=== PATIENT | male | born 1930 | race Caucasian/White ===

== ENCOUNTER 2017-11-29 13:30 | Emergency (ER) | payer MEDICARE, OTHER ==
--- NOTE | 2017-11-29 15:52 | US ---
INDICATION: Right lower leg pain, question DVT. DUPLEX ULTRASOUND, RIGHT LOWER EXTREMITY VEINS: Utilizing 2-D real time, duplex Doppler spectral analysis, and color flow imaging, examination of the right lower extremity veins was obtained, 11/29/2017, and compared with 2008, again revealing no evidence of deep venous thrombosis, with normal compression and color flow present in the deep venous structures and greater saphenous vein to the mid-thigh area. However, at this time there is suggested incompetence of valves at the proximal third of the deep femoral vein. The study was otherwise unremarkable. IMPRESSION: 1. No evidence of deep venous thrombosis. 2. Incompetence of valves suggested proximal third of the femoral deep vein. Report was called to Dr. Figueroa at 1539 hours, 11/29/2017. [facility]
--- NOTE | 2017-12-01 16:02 | ER ---
DATE SEEN: 11/29/2017 TIME SEEN: The patient was seen at 1400 hours. HISTORY: This pleasant 87-year-old gentleman comes in with history of pain in his left leg. He has had a DVT in the past. He has not done any traveling, not sat in one position, and he has not been flying in an airplane. He takes a baby aspirin on a daily basis. 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 He smokes 15-pack years. He has prostate cancer, takes Lupron. He was diagnosed with prostate cancer after he had this pain in his left leg and then further workup demonstrated a large prostate. Consequently, he had prostatic cancer intervention, which required hormonal therapy, not surgical. No history of kidney stones. He denies swelling of the left extremity. Most of the pain is in the left gastroc area. No edema. No history of varicose veins or DVT. REVIEW OF SYSTEMS: Prostate cancer, hypertension, leg pain, chronic obstructive lung disease, [id number] smoking, GERD, chronic muscle aches, and migraines. PHYSICAL EXAMINATION: VITAL SIGNS: Blood pressure 127/70, heart rate regular in the 80s, respirations 20, and oxygen saturation 96%. 80.286 kg. BMI 29.5 kg/m2. CONSTITUTIONAL: The patient is alert and pleasant and talkative fellow with a ward. He is accompanied by his . She is equally as pleasant. NECK: No bruits. No thyromegaly. No masses in neck. HEENT: Pharynx without abnormality. PERRLA intact. Hearing is decreased. If I talk louder, he is able to manage quite well. LUNGS: Clear without rales, rhonchi, or wheezes. HEART: S1, S2. No irregular rate and rhythm. ABDOMEN: Soft. No guarding. No abdominal discomfort. MUSCULOSKELETAL: Palpation of suprapubic area, pelvic bones, without pain. Range of motion of hip and legs, decreased range of motion, but still within normal for his age. Left posterior lower leg (gastroc region) area of focal tenderness. No edema in lower extremities noted. No compromised pulses. No circulation abnormalities in lower extremities. DVT was ruled out with a normal ultrasound. He has some proximal venous valvular insufficiency, which may augment his discomfort he experiences in his calf - this is bilateral lower extremities. ASSESSMENT: 1. Venous insufficiency, with incompetent valves proximal veins in the left lower extremity. 2. Pain in his left mid-calf, etiology indeterminate. No evidence for deep vein thrombosis. 3. Prostate cancer, treated with Lupron, stable. Lupron puts him at an increased risk for deep vein thrombosis or increased coagulability. 4. Hypertension, treated. 5. GERD. 6. Arthritis. 7. Allergic rhinitis. 8. Migraines. PLAN: reassure patient no DVT and follow u with 1 week /[id number] KAMLAA/BYRON GARZON
== END 2017-11-29 16:00 | disposition home or self-care (01) ==
LOC: FB.ED 13:30
DX: I87.2 Venous insufficiency (chronic) (peripheral) (principal); I83.92 Asymptomatic varicose veins of left lower extremity; I10 Essential (primary) hypertension; C61 Malignant neoplasm of prostate; M19.90 Unspecified osteoarthritis, unspecified site; G43.909 Migraine, unspecified, not intractable, without status migrainosus; J30.9 Allergic rhinitis, unspecified; K21.9 Gastro-esophageal reflux disease without esophagitis; J44.9 Chronic obstructive pulmonary disease, unspecified; F17.210 Nicotine dependence, cigarettes, uncomplicated; Z86.718 Personal history of other venous thrombosis and embolism; Z79.01 Long term (current) use of anticoagulants
CPT/HCPCS: 93971-RT; 99284

== ENCOUNTER 2019-05-09 16:46 | Emergency (ER) | payer MEDICARE, OTHER ==
[2019-05-09] MEDS ORDERED: Sodium Chloride 0.9% 10 ML Syringe FLUSH PRN (17:39)
--- NOTE | 2019-05-09 17:39 | EDM.PDOC ---
ED HPI GENERAL MEDICAL PROBLEM - General Chief Complaint: Gastrointestinal Problem Stated Complaint: BLOOD STOOL Time Seen by Provider: 05/09/19 17:20 Source of Information: Reports: Patient History Limitations: Reports: No Limitations - History of Present Illness INITIAL COMMENTS - FREE TEXT/NARRATIVE: 88-year-old male with recent admission to [facility] in [place] with acute GI bleed which was associated with a 9 day hospital stay and 8 units of pack red blood cells being transfused over that period of time. The patient had EGD and colonoscopy performed. The EGD showed gastric and duodenal ulcers and this was initially felt to be the cause of the patient's gastrointestinal bleeding. While he was in the hospital he had drops in his hemoglobin and required recurrent transfusions. He had a colonoscopy following this which showed only diverticula but no source of bleeding. He also had capsule endoscopy performed and the camera has not been passed yet. He eventually stabilized with a hemoglobin of 8.9 at the time of discharge, yesterday. He seemed normal through the day, yesterday, and then today he noted that he begin to have aching all over (he reports he has pain in every part of his body) with cramping in his legs and his thighs and he reports that he had these same symptoms when he had low blood count before. He also noticed that he was very weak and he couldn't get out of bed day without assistance and felt dizzy when he was up and about. Just prior to coming to the emergency department he had 2 stools with bright red blood and clots. He has had no further stools since that time. He has had some nausea but no vomiting. He has no abdominal discomfort or cramping. The pain that he is having is rated by him as a 6-7/10. It is all over his body and he reports it is sore and cramping. He has had no fevers or chills. He has had no trouble breathing. He has had palpitations or feeling of fast heart rate. There are no other associated signs or symptoms. There are no other modifying factors. Onset: Today Duration: Getting Worse Location: Reports: Generalized Quality: Reports: Ache, Other (Cramping) Severity: Moderate Improves with: Reports: Rest (Somewhat) Worsens with: Reports: Other (Standing), Movement Context: Reports: Other (As above) Associated Symptoms: Reports: Nausea/Vomiting, Weakness Treatments INSTRUCTIONAL SUPPORT SPECIALIST: Reports: Other (see below) (Nothing) generalized Pain Score (Numeric/FACES): 6 - Related Data Allergies Allergy/AdvReac Type Severity Reaction Status Date / Time Penicillins Allergy Hives Verified 05/09/19 17:30 Home Meds: Home Meds Lisinopril 20 mg PO DAILY 11/29/17 [History] Enzalutamide [Xtandi] 40 mg PO DAILY 08/25/18 [History] amLODIPine Besylate [Amlodipine Besylate] 5 mg PO DAILY 08/25/18 [History] Past Medical History HEENT History: Reports: Impaired Vision Cardiovascular History: Reports: Hypertension Gastrointestinal History: Reports: GI Bleed Genitourinary History: Reports: Prostate Disorder Oncologic (Cancer) History: Reports: Bone, Prostate - Past Surgical History GI Surgical History: Reports: Colonoscopy, EGD Social & Family History - Family History Family Medical History: Noncontributory - Tobacco Use Smoking Status *Q: Former Smoker (Quit 30 years ago) - Caffeine Use Caffeine Use: Reports: Coffee - Alcohol Use Alcohol Use History: Yes Alcohol Use Frequency: Daily (1-2 drinks daily.) - Living Situation & Occupation Social History Comment: He is here with his daughter. ED ROS GENERAL - Review of Systems Review Of Systems: See Below Constitutional: Reports: Malaise, Weakness HEENT: Reports: Other (Drymouthed) Respiratory: Reports: No Symptoms Cardiovascular: Reports: No Symptoms GI/Abdominal: Reports: Bloody Stool, Hematochezia : Reports: No Symptoms Musculoskeletal: Reports: Other (Aching all over his body. Cramps in both legs) Skin: Reports: No Symptoms Neurological: Reports: Dizziness Hematologic/Lymphatic: Reports: No Symptoms Immunologic: Reports: No Symptoms ED EXAM, GENERAL - Physical Exam Exam: See Below Exam Limited By: No Limitations General Appearance: Alert, WD/WN, Moderate Distress Eye Exam: Bilateral Eye: EOMI, Normal Inspection Ears: Normal External Exam Ear Exam: Bilateral Ear: Auricle Normal Nose: Normal Inspection, Normal Mucosa, No Blood Throat/Mouth: Normal Voice, No Airway Compromise, Other (Dry mucous membranes) Head: Atraumatic, Normocephalic Neck: Normal Inspection, Supple, Non-Tender, Full Range of Motion Respiratory/Chest: No Respiratory Distress, Lungs Clear, Normal Breath Sounds, No Accessory Muscle Use, Chest Non-Tender Cardiovascular: Normal Peripheral Pulses, Regular Rate, Rhythm, No JVD, Systolic Murmur Peripheral Pulses: 2+: Radial (L), Radial (R), Dorsalis Pedis (L), Dorsalis Pedis (R) GI/Abdominal: Normal Bowel Sounds, Soft, Non-Tender, No Mass Rectal (Males) Exam: Other (Stool brought in by family shows definite bright red blood with clots.) Back Exam: Normal Inspection Extremities: Normal Range of Motion, Normal Capillary Refill Neurological: Alert, Oriented, CN II-XII Intact, Normal Cognition, No Motor/ Sensory Deficits Skin Exam: Warm, Dry, Intact, Pallor Course - Vital Signs Last Recorded V/S: Last Vital Signs Temp 36.4 C 05/09/19 19:00 Pulse 82 05/09/19 19:00 Resp 18 05/09/19 19:00 BP 122/70 05/09/19 19:00 Pulse Ox 97 05/09/19 19:00 Orthostatic Blood Pressure [ 134/76 Sitting] Orthostatic Blood Pressure [ 132/70 Supine] - Orders/Labs/Meds Orders: Active Orders 24 hr Category Date Time Status Peripheral IV Insertion Adult [OM.PC] Routine Oth 05/09/19 17:39 Ordered Labs: Laboratory Tests 05/09/19 05/09/19 05/09/19 Range/Units 18:10 18:10 18:10 WBC 5.3 (4.5-12.0) X10-3/uL RBC 2.29 L (4.30-5.75) x10(6)uL Hgb 7.2 L (13.5-17.8) g/dL Hct 20.9 L* (30.0-51.3) % MCV 91.3 (80-96) fL MCH 31.4 (27.7-33.6) pg MCHC 34.4 (32.2-35.4) g/dL RDW 17.3 H (11.5-15.5) % Plt Count 167 (125-369) X10(3)uL MPV 7.4 (7.4-10.4) fL Neut % (Auto) 79.8 (46-82) % Lymph % (Auto) 10.4 L (13-37) % [place] % (Auto) 7.8 (4-12) % Eos % (Auto) 2 (1.0-5.0) % Baso % (Auto) 0 (0-2) % Neut # (Auto) 4.2 (1.6-8.3) # Lymph # (Auto) 0.5 L (0.6-5.0) # [place] # (Auto) 0.4 (0.0-1.3) # Eos # (Auto) 0.1 (0.0-0.8) # Baso # (Auto) 0.0 (0.0-0.2) # PT (8.7-11.1) INR (0.89-1.13) Sodium 140 (135-145) mmol/L Potassium 3.1 L (3.5-5.3) mmol/L Chloride 107 (100-110) mmol/L Carbon Dioxide 25 (21-32) mmol/L BUN 20 H (7-18) mg/dL Creatinine 1.1 (0.70-1.30) mg/dL Est Cr Clr Drug Dosing TNP Estimated GFR (MDRD) > 60 (>60) BUN/Creatinine Ratio 18.2 (9-20) Glucose 99 (80-116) mg/dL Calcium 8.1 L (8.6-10.2) mg/dL Magnesium 1.4 L (1.8-2.5) mg/dL Total Bilirubin 0.4 (0.1-1.3) mg/dL AST 19 (5-25) IU/L ALT 14 (12-36) U/L Alkaline Phosphatase 60 (56-112) IU/L Total Protein 4.6 L (6.0-8.0) g/dL Albumin 2.2 L (3.2-4.6) g/dL Globulin 2.4 g/dL Albumin/Globulin Ratio 0.9 /17/19 Range/Units 18:20 WBC (4.5-12.0) X10-3/uL RBC (4.30-5.75) x10(6)uL Hgb (13.5-17.8) g/dL Hct (30.0-51.3) % MCV (80-96) fL MCH (27.7-33.6) pg MCHC (32.2-35.4) g/dL RDW (11.5-15.5) % Plt Count (125-369) X10(3)uL MPV (7.4-10.4) fL Neut % (Auto) (46-82) % Lymph % (Auto) (13-37) % [place] % (Auto) (4-12) % Eos % (Auto) (1.0-5.0) % Baso % (Auto) (0-2) % Neut # (Auto) (1.6-8.3) # Lymph # (Auto) (0.6-5.0) # [place] # (Auto) (0.0-1.3) # Eos # (Auto) (0.0-0.8) # Baso # (Auto) (0.0-0.2) # PT 10.4 (8.7-11.1) INR 1.07 (0.89-1.13) Sodium (135-145) mmol/L Potassium (3.5-5.3) mmol/L Chloride (100-110) mmol/L Carbon Dioxide (21-32) mmol/L BUN (7-18) mg/dL Creatinine (0.70-1.30) mg/dL Est Cr Clr Drug Dosing Estimated GFR (MDRD) (>60) BUN/Creatinine Ratio (9-20) Glucose (80-116) mg/dL Calcium (8.6-10.2) mg/dL Magnesium (1.8-2.5) mg/dL Total Bilirubin (0.1-1.3) mg/dL AST (5-25) IU/L ALT (12-36) U/L Alkaline Phosphatase (56-112) IU/L Total Protein (6.0-8.0) g/dL Albumin (3.2-4.6) g/dL Globulin g/dL Albumin/Globulin Ratio Meds: Medications Discontinued Medications Generic Name Dose Route Start Last Admin Trade Name Freq PRN Reason Stop Dose Admin Fentanyl 50 mcg 05/09/19 17:40 05/09/19 18:17 Sublimaze IVPUSH 05/09/19 17:41 Not Given ONETIME ONE Fentanyl 25 mcg 05/09/19 18:04 05/09/19 18:21 Sublimaze IVPUSH 05/09/19 18:05 25 mcg ONETIME ONE Administration Fentanyl 25 mcg 05/09/19 20:49 05/09/19 21:13 Sublimaze IVPUSH 05/09/19 20:50 25 mcg ONETIME ONE Administration Sodium Chloride 1,000 mls @ 125 mls/hr 05/09/19 17:45 05/09/19 18:21 Normal Saline IV 125 mls/hr ASDIRECTED MARCI Administration Magnesium Sulfate 2 gm/ Premix 50 mls @ 150 mls/hr 05/09/19 20:08 05/09/19 20 :30 IV 05/09/19 20:27 150 mls/hr ONETIME ONE Administration Ondansetron HCl 4 mg 05/09/19 17:40 05/09/19 18:20 Zofran IVPUSH 05/09/19 17:41 4 mg ONETIME ONE Administration Sodium Chloride 10 ml 05/09/19 17:39 Saline Flush FLUSH ASDIRECTED PRN Keep Vein Open - Re-Assessments/Exams Free Text/Narrative Re-Assessment/Exam: 05/09/19 20:20: The patient had no orthostatic changes with blood pressure or pulse. His hemoglobin was 7.2 which is significantly lower than his discharge hemoglobin from [facility] (8.9). He does have evidence of further GI bleed which is most probably lower bleeding at this point. He has been given normal saline IV and fentanyl IV. The patient also has low magnesium and I will give him magnesium 2 grams IV. He has remained hemodynamically stable while in the emergency department. However, with recurrent GI hemorrhage he will need specialty services which are not available at [facility] ( gastroenterology and interventional radiology). I discussed this with the patient and he has agreed for me to discuss it with the doctors at [facility] in [place]. 05/09/19 20:45: I discussed patient's case with Dr. Lemus, hospitalist at [facility] in [place], and he has agreed to accept the patient in transfer. The patient will be transferred via ambulance to [facility] in [place] for direct admission. The patient and his family are in agreement with this plan. 05/09/19 21:10: The patient has recurrent pain. His blood pressure and pulse have remained stable. I will give the patient another dose of fentanyl IV. Bed is available at [facility] in [place] and we are awaiting EMS transport. The patient will continue to be monitored closely. Departure - Departure Time of Disposition: 21:45 Disposition: DC/Tfer to Acute Hospital 02 Condition: Fair (Guarded) Clinical Impression: Recurrent gastrointestinal hemorrhage, Acute blood loss anemia, Hypomagnesemia - Discharge Information Referrals: Cesar Thompson PA-C [Primary Care Provider] - Forms: ED Department Discharge - My Orders Last 24 Hours: My Active Orders 05/09/19 17:39 Peripheral IV Insertion Adult [OM.PC] Routine - Assessment/Plan Last 24 Hours: My Active Orders 05/09/19 17:39 Peripheral IV Insertion Adult [OM.PC] Routine
[2019-05-09] MEDS ORDERED: fentaNYL 100 MCG/2 ML SDV IVPUSH ONE ×3 (17:40→20:49)
[2019-05-09] MEDS ORDERED: Ondansetron 4 MG/2 ML SDV IVPUSH ONE (17:40)
[2019-05-09] MEDS ORDERED: Sodium Chloride 0.9% 1,000 ML IV SCH (17:45)
[2019-05-09] MEDS ORDERED: Magnesium Sulfate/Water 2 GM in Premix Bag 1 BAG IV ONE (20:08)
== END 2019-05-09 21:51 ==
LOC: FB.ED 16:46
DX: K92.2 Gastrointestinal hemorrhage, unspecified (principal); D62 Acute posthemorrhagic anemia; E83.42 Hypomagnesemia; I10 Essential (primary) hypertension; Z88.1 Allergy status to other antibiotic agents; Z79.899 Other long term (current) drug therapy; Z87.891 Personal history of nicotine dependence
CPT/HCPCS: 36415; 80053; 83735; 85025; 85610; 96361; 96365; 96375; 96376; 99285; J2405; J3010; J3475; J7030